=== PATIENT | male | born 1960 | race Hispanic/Latino ===

== ENCOUNTER 2023-09-29 16:25 | Inpatient (IN) | payer OTHER ==
[~2023-09-29] VITALS: Ht 170.2 cm; Wt 79.0 kg
[2023-09-29 17:39] LABS: BASOPHILS # (AUTO) 0.05 K/uL (0.00-0.20); BASOPHILS % (AUTO) 0.9 % (0.0-5.0); EOSINOPHILS # (AUTO) 0.05 K/uL (0.00-0.70); EOSINOPHILS % (AUTO) 0.9 % (0.0-8.0); HEMATOCRIT 37.6 % (42-54); IMMATURE GRANULOCYTE ABSOLUTE 0.01 K/uL (0-1); LYMPHOCYTES # (AUTO) 1.9 K/uL (1.0-4.8); LYMPHOCYTES % (AUTO) 36.2 % (21.0-51.0); MEAN CORPUSCULAR HGB CONC 32.7 g/dL (32.0-36.0); MEAN CORPUSCULAR VOLUME 88.7 fL (79-99); MONOCYTES # (AUTO) 0.5 K/uL (0.1-1.0); MONOCYTES % (AUTO) 9.9 % (3.0-13.0); NEUTROPHILS # (AUTO) 2.8 K/uL (1.8-7.7); NEUTROPHILS % (AUTO) 51.9 % (40.0-77.0); PLATELET COUNT (AUTO) 227 K/uL (130-400); RED BLOOD CELL COUNT(AUTO) 4.24 MIL/uL (4.50-6.20); RED CELL DISTRIBUTION WIDTH 14.5 % (11.0-15.5); WHITE BLOOD COUNT (AUTO) 5.3 K/uL (4.8-10.8)
[2023-09-29 17:55] LABS: CREATININE 2.8 mg/dL (0.5-1.5); POTASSIUM 4.4 mmol/L (3.5-5.1)
[2023-09-29 18:02] LABS: ALBUMIN 1.7 g/dL (3.5-5.0); BILIRUBIN,TOTAL 0.2 mg/dL (0.2-1.0); TOTAL PROTEIN, SERUM 6.1 g/dL (6.0-8.3)
[2023-09-29 18:07] LABS: INR 0.94 (0.85-1.15); PROTHROMBIN TIME 10.9 SEC (9.6-11.6)
[2023-09-29 18:09] LABS: PARTIAL THROMBOPLASTIN TIME 31.4 SEC (26.3-35.5)
[2023-09-29 19:53] LABS: APPEARANCE,URINE CLOUDY (CLEAR); BILIRUBIN,URINE NEGATIVE (NEGATIVE); COLOR,URINE YELLOW (YELLOW); GLUCOSE, URINE (UA) 300 mg/dL (NEGATIVE); KETONES,URINE NEGATIVE (NEGATIVE); LEUKOCYTE ESTERASE ,URINE NEGATIVE Leu/uL (NEGATIVE); NITRATE,URINE NEGATIVE (NEGATIVE); OCCULT BLOOD,URINE LARGE (NEGATIVE); PROTEIN,URINE 600 mg/dL (NEGATIVE); UROBILINOGEN,URINE 0.2 mg/dL (0.2-1.0)
[2023-09-29 19:54] LABS: ADD UA MICROSCOPIC YES
[2023-09-29 19:57] LABS: BACTERIA,URINE RARE /HPF (None Seen); MUCUS,URINE RARE LPF (None Seen); OTHER CASTS, URINE 4 /LPF (None Seen); RENAL EPITHELIAL CELLS,URINE RARE /HPF (None Seen); SQUAMOUS EPITHELIAL CELL,UR FEW /HPF (0-2); WBC CLUMP FEW /HPF (0-1)
[2023-09-29] MEDS: FUROSEMIDE 40MG VIAL IV ONE (22:08)
[2023-09-29 22:34] LABS: RAPID GROUP A STREP positive (NEGATIVE)
[2023-09-29 22:38] LABS: SARS-CoV-2, RNA, NAAT NEGATIVE SARS CoV-2 (NEGATIVE)
[2023-09-29 22:42] LABS: INFLUENZA TYPE A Negative For Type A (NEGATIVE); INFLUENZA TYPE B Negative For Type B (NEGATIVE)
[2023-09-29] MEDS ORDERED: CEFTRIAXONE 1G VIAL 2 GM in 0.9%NACL 100ML 100 ML IV SCH (23:00)
[2023-09-29] MEDS ORDERED: ONDANSETRON 4MG INJ IV PRN (23:00)
[2023-09-29] MEDS: CEFTRIAXONE 2GM VIAL IVPB SCH (23:43)
[2023-09-30] VITALS (8 sets, daily range): BP systolic 139–185; BP diastolic 84–105; PULSE 85–97; RESP 16–18; O2SAT 97–98
[2023-09-30] MEDS: ACETAMINOPHEN 325 MG TAB PO PRN (00:01)
[2023-09-30] MEDS: CEFTRIAXONE 1G VIAL IVPB SCH (01:00)
[2023-09-30] MEDS: HYDRALAZINE 20MG/ML VIAL IV PRN (03:11)
[2023-09-30 05:43] LABS: BASOPHILS # (AUTO) 0.04 K/uL (0.00-0.20); BASOPHILS % (AUTO) 0.5 % (0.0-5.0); EOSINOPHILS # (AUTO) 0.03 K/uL (0.00-0.70); EOSINOPHILS % (AUTO) 0.4 % (0.0-8.0); HEMATOCRIT 31.9 % (42-54); IMMATURE GRANULOCYTE ABSOLUTE 0.01 K/uL (0-1); LYMPHOCYTES # (AUTO) 2.4 K/uL (1.0-4.8); LYMPHOCYTES % (AUTO) 33.1 % (21.0-51.0); MEAN CORPUSCULAR HEMOGLOBIN 29.3 pg (27.0-33.0); MEAN CORPUSCULAR HGB CONC 33.9 g/dL (32.0-36.0); MEAN CORPUSCULAR VOLUME 86.4 fL (79-99); MONOCYTES # (AUTO) 0.8 K/uL (0.1-1.0); MONOCYTES % (AUTO) 11.2 % (3.0-13.0); NEUTROPHILS % (AUTO) 54.7 % (40.0-77.0); PLATELET COUNT (AUTO) 183 K/uL (130-400); RED BLOOD CELL COUNT(AUTO) 3.69 MIL/uL (4.50-6.20); RED CELL DISTRIBUTION WIDTH 14.5 % (11.0-15.5); WHITE BLOOD COUNT (AUTO) 7.3 K/uL (4.8-10.8)
[2023-09-30 06:08] LABS: ALBUMIN 1.5 g/dL (3.5-5.0); BILIRUBIN,DIRECT 0.1 mg/dL (0.0-0.3); BILIRUBIN,TOTAL 0.2 mg/dL (0.2-1.0); CREATININE 2.8 mg/dL (0.5-1.5); MAGNESIUM 2.1 mg/dL (1.80-2.40); POTASSIUM 3.6 mmol/L (3.5-5.1); TOTAL PROTEIN, SERUM 5.8 g/dL (6.0-8.3)
[2023-09-30 06:31] LABS: B-TYPE NATRIURETIC PEPTIDE 122 pg/mL (0-100)
[2023-09-30] MEDS ORDERED: BUMETANIDE 1MG/4ML VIAL IVP SCH (09:00)
[2023-09-30] MEDS: FAMOTIDINE 20MG TAB PO SCH (10:40)
[2023-09-30 10:41] LABS: HEMOGLOBIN A1C 5.9 % (4.0-6.0)
[2023-09-30 11:25] LABS: HIV 1&2 ANTIBODY Non-Reactive (Negative); HIV-1 p24 Antigen Non-Reactive (Negative)
[2023-09-30] MEDS ORDERED: LOSA100T59 PO (11:42)
[2023-09-30] MEDS ORDERED: FURO20TA6 PO (11:42)
[2023-09-30] MEDS ORDERED: LEVO25CA4 PO (11:42)
[2023-09-30] MEDS ORDERED: ROSU10TA28 PO (11:42)
[2023-09-30 12:05] LABS: AMPHET/METH SCREEN,URINE NEGATIVE (NEGATIVE); BARBITURATE SCREEN, URINE NEGATIVE (NEGATIVE); BENZODIAZEPINES SCREEN,URINE NEGATIVE (NEGATIVE); CANNABINOID SCREEN,URINE NEGATIVE (NEGATIVE); COCAINE SCREEN,URINE POSITIVE (NEGATIVE); OPIATE SCREEN,URINE NEGATIVE (NEGATIVE); PHENCYCLIDINE SCREEN,URINE NEGATIVE (NEGATIVE)
[2023-09-30 12:12] LABS: ABG BASE EXCESS -3.2 mmol/L (-2.0-3.0); ABG HCO3 19.4 mmol/L (21.0-28.0); ABG OXYGEN SATURATION 95.3 % (95.0-99.0); ABG PCO2 28 mmHg (35-48); ABG PH 7.456 (7.35-7.450); CARBON MONOXIDE 0; HHb 4.7; PO2, ARTERIAL BG 74.2 mmHg (83.0-108.0); VENT MODE, BG RA (ROOM AIR)
[2023-09-30] MEDS: FUROSEMIDE 40MG VIAL IV ONE (12:58)
[2023-09-30] MEDS: LOSARTAN 100 MG TABLET PO SCH (13:58)
[2023-10-01] VITALS (9 sets, daily range): BP systolic 146–188; BP diastolic 72–102; PULSE 84–99; RESP 16–20; O2SAT 96–97
[2023-10-01 05:12] LABS: HEMATOCRIT 31.4 % (42-54); MEAN CORPUSCULAR HEMOGLOBIN 28.9 pg (27.0-33.0); MEAN CORPUSCULAR HGB CONC 32.8 g/dL (32.0-36.0); PLATELET COUNT (AUTO) 165 K/uL (130-400); RED BLOOD CELL COUNT(AUTO) 3.57 MIL/uL (4.50-6.20); RED CELL DISTRIBUTION WIDTH 14.4 % (11.0-15.5); WHITE BLOOD COUNT (AUTO) 6.1 K/uL (4.8-10.8)
[2023-10-01 05:23] LABS: % IRON SATURATION 10.7 % (30-44)
[2023-10-01 05:46] LABS: ALBUMIN 1.4 g/dL (3.5-5.0); BILIRUBIN,TOTAL 0.2 mg/dL (0.2-1.0); CREATININE 2.8 mg/dL (0.5-1.5); MAGNESIUM 2.1 mg/dL (1.80-2.40); PHOSPHORUS 4.2 mg/dL (2.5-4.9); POTASSIUM 3.6 mmol/L (3.5-5.1); THYROID STIMULATING HORMONE 8.38 uIU/mL (0.36-3.74); TOTAL PROTEIN, SERUM 5.3 g/dL (6.0-8.3); URIC ACID 5.5 mg/dL (2.6-7.2)
[2023-10-01 05:49] LABS: BASOPHILS % (MANUAL) 1 % (0-2); EOSINOPHILS % (MANUAL) 1 % (1-6); LYMPHOCYTES % (MANUAL) 38 % (22-44); MAN.DIFF COMMENT-IMPRESSION MANUAL DIFFERENTIAL; MONOCYTES % (MANUAL) 3 % (2-9); PLATELET MORPHOLOGY COMMENT ADEQUATE; SEGMENTED NEUTROPHILS % 57 % (40-70); TOTAL CELLS COUNTED 100; WBC MORPHOLOGY SMUDGE CELLS 1+
[2023-10-01] MEDS: FUROSEMIDE 20MG VIAL IV SCH (08:32)
[2023-10-01] MEDS ORDERED: LOSARTAN 100 MG TABLET PO SCH (09:00)
[2023-10-01] MEDS: LEVOTHYROXINE 25 MCG TABLET PO SCH (10:40)
[2023-10-01] MEDS: THIAMINE HCL 100 MG/ML 2ML VIAL IVP SCH (10:40)
[2023-10-01] MEDS: HYDRALAZINE 25MG TABLET PO SCH (10:40)
[2023-10-01] MEDS: FERROUS SULFATE 325 MG TABLET.DR PO SCH (10:40)
[2023-10-01] MEDS: Vitamin B Complex/Vit C/Folic Acid PO SCH (10:42)
[2023-10-01 14:35] LABS: APPEARANCE,URINE CLEAR (CLEAR); BILIRUBIN,URINE NEGATIVE (NEGATIVE); COLOR,URINE YELLOW (YELLOW); GLUCOSE, URINE (UA) 250 mg/dL (NEGATIVE); KETONES,URINE NEGATIVE (NEGATIVE); LEUKOCYTE ESTERASE ,URINE NEGATIVE Leu/uL (NEGATIVE); NITRATE,URINE NEGATIVE (NEGATIVE); OCCULT BLOOD,URINE SMALL (NEGATIVE); PROTEIN,URINE >=300 mg/dL (NEGATIVE); UROBILINOGEN,URINE 0.2 mg/dL (0.2-1.0)
[2023-10-01 14:36] LABS: ADD UA MICROSCOPIC YES
[2023-10-01 14:39] LABS: CREATININE,URINE RANDOM 101 mg/dL (30-135)
[2023-10-01 14:57] LABS: BACTERIA,URINE Few /HPF (None Seen); RBC,URINE 0-1 /HPF (0-1); SQUAMOUS EPITHELIAL CELL,UR Rare /HPF (0-2)
[2023-10-01 15:11] LABS: PROTEIN,URINE RANDOM 858.5 mg/dL (0-11.9)
[2023-10-01] MEDS ORDERED: IRON SUCROSE COMPLEX 100 MG/5 ML VIAL IVP SCH (15:30)
[2023-10-01] MEDS: IRON SUCROSE COMPLEX 300 MG+/NS 250ML IV SCH (16:55)
[2023-10-01 21:04] LABS: HEPATITIS A IGM ANTIBODY Non-Reactive (Nonreactive); HEPATITIS B CORE IGM ANTIBODY Non-Reactive (Negative); HEPATITIS B SURFACE ANTIGEN Non-Reactive (Nonreactive); HEPATITIS C ANTIBODY Non-Reactive (Nonreactive)
[2023-10-02] VITALS (7 sets, daily range): BP systolic 140–187; BP diastolic 75–95; PULSE 83–95; RESP 16–20; O2SAT 96
[2023-10-02 05:16] LABS: HEMATOCRIT 28.9 % (42-54); MEAN CORPUSCULAR HEMOGLOBIN 28.9 pg (27.0-33.0); MEAN CORPUSCULAR HGB CONC 33.6 g/dL (32.0-36.0); PLATELET COUNT (AUTO) 184 K/uL (130-400); RED BLOOD CELL COUNT(AUTO) 3.36 MIL/uL (4.50-6.20); RED CELL DISTRIBUTION WIDTH 14.4 % (11.0-15.5)
[2023-10-02 05:47] LABS: ALBUMIN 1.3 g/dL (3.5-5.0); BILIRUBIN,TOTAL 0.2 mg/dL (0.2-1.0); MAGNESIUM 2.4 mg/dL (1.80-2.40); PHOSPHORUS 4.6 mg/dL (2.5-4.9); POTASSIUM 3.6 mmol/L (3.5-5.1); TOTAL PROTEIN, SERUM 5.2 g/dL (6.0-8.3)
[2023-10-02 07:21] LABS: BAND NEUTROPHILS % (MANUAL) 1 % (0-2); LYMPHOCYTES % (MANUAL) 29 % (22-44); MONOCYTES % (MANUAL) 5 % (2-9); SEGMENTED NEUTROPHILS % 65 % (40-70); TOTAL CELLS COUNTED 100
[2023-10-02 07:22] LABS: MAN.DIFF COMMENT-IMPRESSION MANUAL DIFFERENTIAL; PLATELET MORPHOLOGY COMMENT ADEQUATE; WBC MORPHOLOGY CONSISTENT W/DIFF
[2023-10-02] MEDS: HYDRALAZINE 25MG TABLET PO SCH (08:24)
[2023-10-03] VITALS (7 sets, daily range): BP systolic 134–155; BP diastolic 69–84; PULSE 87–94; RESP 17–20; O2SAT 96–97
[2023-10-03] MEDS: ACETAMINOPHEN 325 MG TAB PO PRN (00:19)
[2023-10-03 05:53] LABS: BASOPHILS # (AUTO) 0.06 K/uL (0.00-0.20); BASOPHILS % (AUTO) 0.9 % (0.0-5.0); EOSINOPHILS # (AUTO) 0.09 K/uL (0.00-0.70); EOSINOPHILS % (AUTO) 1.4 % (0.0-8.0); HEMATOCRIT 31.5 % (42-54); IMMATURE GRANULOCYTE ABSOLUTE 0.03 K/uL (0-1); LYMPHOCYTES # (AUTO) 2.2 K/uL (1.0-4.8); LYMPHOCYTES % (AUTO) 33.9 % (21.0-51.0); MEAN CORPUSCULAR HGB CONC 32.7 g/dL (32.0-36.0); MEAN CORPUSCULAR VOLUME 88.7 fL (79-99); MONOCYTES # (AUTO) 0.6 K/uL (0.1-1.0); MONOCYTES % (AUTO) 9.7 % (3.0-13.0); NEUTROPHILS # (AUTO) 3.5 K/uL (1.8-7.7); NEUTROPHILS % (AUTO) 53.6 % (40.0-77.0); PLATELET COUNT (AUTO) 192 K/uL (130-400); RED BLOOD CELL COUNT(AUTO) 3.55 MIL/uL (4.50-6.20); RED CELL DISTRIBUTION WIDTH 14.6 % (11.0-15.5); WHITE BLOOD COUNT (AUTO) 6.6 K/uL (4.8-10.8)
[2023-10-03 06:23] LABS: ALBUMIN 1.4 g/dL (3.5-5.0); BILIRUBIN,TOTAL 0.2 mg/dL (0.2-1.0); CREATININE 3.1 mg/dL (0.5-1.5); POTASSIUM 3.6 mmol/L (3.5-5.1); TOTAL PROTEIN, SERUM 5.3 g/dL (6.0-8.3)
[2023-10-03 12:11] LABS: ANTI-SCLERODERMA 70 <0.2 AI (0.0-0.9)
[2023-10-04 04:00] VITALS: BP 152/84; PULSE 93; RESP 18
[2023-10-04 05:26] LABS: BASOPHILS # (AUTO) 0.07 K/uL (0.00-0.20); BASOPHILS % (AUTO) 0.9 % (0.0-5.0); EOSINOPHILS # (AUTO) 0.12 K/uL (0.00-0.70); EOSINOPHILS % (AUTO) 1.6 % (0.0-8.0); HEMATOCRIT 30.4 % (42-54); IMMATURE GRANULOCYTE ABSOLUTE 0.04 K/uL (0-1); LYMPHOCYTES # (AUTO) 2.4 K/uL (1.0-4.8); MEAN CORPUSCULAR HEMOGLOBIN 28.5 pg (27.0-33.0); MEAN CORPUSCULAR HGB CONC 32.2 g/dL (32.0-36.0); MEAN CORPUSCULAR VOLUME 88.4 fL (79-99); MONOCYTES # (AUTO) 0.9 K/uL (0.1-1.0); MONOCYTES % (AUTO) 11.8 % (3.0-13.0); NEUTROPHILS % (AUTO) 53.2 % (40.0-77.0); PLATELET COUNT (AUTO) 219 K/uL (130-400); RED BLOOD CELL COUNT(AUTO) 3.44 MIL/uL (4.50-6.20); RED CELL DISTRIBUTION WIDTH 14.8 % (11.0-15.5); WHITE BLOOD COUNT (AUTO) 7.5 K/uL (4.8-10.8)
[2023-10-04 05:32] LABS: PROTHROMBIN TIME 11.6 SEC (9.6-11.6)
[2023-10-04 05:33] LABS: PARTIAL THROMBOPLASTIN TIME 33.6 SEC (26.3-35.5)
[2023-10-04 05:53] LABS: ALBUMIN 1.4 g/dL (3.5-5.0); BILIRUBIN,TOTAL 0.2 mg/dL (0.2-1.0); MAGNESIUM 2.3 mg/dL (1.80-2.40); PHOSPHORUS 4.2 mg/dL (2.5-4.9); POTASSIUM 3.5 mmol/L (3.5-5.1); TOTAL PROTEIN, SERUM 5.4 g/dL (6.0-8.3)
[2023-10-04 07:00] VITALS: BP 154/78; PULSE 89; RESP 18
[2023-10-04 08:00] VITALS: O2SAT 97
[2023-10-04] MEDS ORDERED: FERR324T4 PO (08:35)
[2023-10-04] MEDS ORDERED: HYDR50TA37 PO (08:35)
[2023-10-04] MEDS ORDERED: CALC-131 PO (08:35)
[2023-10-04 11:49] VITALS: BP 158/84; PULSE 88; RESP 18
[2023-10-04 12:06] VITALS: BP 119/68; PULSE 84; RESP 18
[2023-10-05 15:13] LABS: ATYPICAL P-ANCA AB <1:20 titer (Neg:<1:20); CYTOPLASMIC (C-ANCA) AB, IGG <1:20 titer (Neg:<1:20)
[2023-10-05 16:11] LABS: IGA (IFE) 999 mg/dL (61-437); IGG (IMMUNOFIXATION) 1207 mg/dL (603-1613); IGM (IMMUNOFIXATION) 73 mg/dL (20-172)
== END 2023-10-04 14:15 | disposition home or self-care (01) | DRG 291 ==
LOC: EDH 16:25 → EDHIP 16:26 → UNDOADMIN 23:00 → 3BH 09-30 01:52 → EDHIP 09-30 01:52
PROVIDERS: ADMIT Hospitalist; ATTEND Hospitalist
DX: I13.0 Hypertensive heart and chronic kidney disease with heart failure and stage 1 through stage 4 chronic kidney disease, or unspecified chronic kidney disease (principal); I50.31 Acute diastolic (congestive) heart failure; R65.11 Systemic inflammatory response syndrome (SIRS) of non-infectious origin with acute organ dysfunction; N17.9 Acute kidney failure, unspecified; M62.82 Rhabdomyolysis; E46 Unspecified protein-calorie malnutrition; N18.4 Chronic kidney disease, stage 4 (severe); N43.3 Hydrocele, unspecified; Z20.822 Contact with and (suspected) exposure to COVID-19; J02.0 Streptococcal pharyngitis; D64.9 Anemia, unspecified; F14.10 Cocaine abuse, uncomplicated; E03.9 Hypothyroidism, unspecified; E66.9 Obesity, unspecified; K82.4 Cholesterolosis of gallbladder; Z79.899 Other long term (current) drug therapy; Z68.27 Body mass index [BMI] 27.0-27.9, adult
CPT/HCPCS: 36415; 36600; 71045; 76700; 76870; 80053; 80074; 80305; 81001; 82248; 82306; 82435; 82550; 82570; 82728; 82803; 82947; 83036; 83540; 83550; 83605; 83735; 83880; 84100; 84132; 84145; 84156; 84295; 84443; 84484; 84550; 85018; 85025; 85610; 85730; 86038; 86160; 86215; 86235; 86255; 86334; 86701; 87040; 87088; 87390; 87635; 87804; 87880; 93005; 93306; G0378; J0360; J0696; J1756; J1940; J3411; J3490; J7050